=== PATIENT | male | born 1945 | race Caucasian/White ===

== ENCOUNTER 2023-06-22 06:15 | Emergency (ER) | payer MEDICARE, SELFPAY ==
[2023-06-22] VITALS (14 sets, daily range): BP systolic 153–183; BP diastolic 84–94; PULSE 74–89; RESP 16–24; TEMP 36.9; O2SAT 95–99; BMI 31.6
--- NOTE | 2023-06-22 06:39 | XR_ITS ---
The [address] [address] Patient Name: CHELIAT MCCOLLUM MRN: [id number] date: 1945 Sex: M Assigned Patient Location: ER Current Patient Location: ED.MAIN Accession/Order Number: [id number] Exam Date: 06/22/2023 06:54 Report Date: 06/22/2023 07:13 At the request of: DOMINICK ASHFORD Procedure: XR chest 1V EXAM: XR chest 1V HISTORY: Near syncope. COMPARISON: Chest radiograph dated 03/19/2021. TECHNIQUE: AP erect portable chest radiograph performed. FINDINGS: The cardiac silhouette is upper limits normal size and magnified. Stable mild atheromatous calcification at the aortic arch. There are low lung volumes with resultant prominence and crowding of the interstitial markings within both lung [place]. There is no consolidation or infiltrate. There is mild linear atelectasis within the right lower chest. There is no pleural effusion or pulmonary vascular congestion. There is no pneumothorax. The bony structures are osteopenic. There is no acute osseous abnormality. XR/XR chest 1V IMPRESSION: Unremarkable expiratory chest. Electronically authenticated by: RONALD JERONIMO Date: 06/22/2023 07:13
--- NOTE | 2023-06-22 06:39 | ECG_ITS ---
The [facility] Test Date: 2023-06-22 Pat Name: CHELITA MCCOLLUM Department: Room: - Gender: Male Administration Intern: : 1945 Requested By: Order Number: [id number] Reading MD: MANA DEJESUS Measurements Intervals [place] Rate: 85 P: 65 CA: 150 QRS: 7 QRSD: 76 T: 24 QT: 348 QTc: 390 Interpretive Statements 1100 Sinus rhythm 9110 normal ECG No previous ECG available for comparison Electronically Signed On 06-22-2023 17:58:16 EST by MANA DEJESUS
[2023-06-22 07:03] LABS: Basophils Absolute Auto 0.1 10^3/uL (0.0-0.1); Basophils Percent Auto 1.4 % (0.2-2.0); Eosinophils Absolute Auto 0.1 10^3/uL (0.0-0.7); Eosinophils Percent Auto 1.2 % (0.9-7.0); Hemoglobin 14.3 g/dL (14.0-18.0); Immature Granulocytes Abs Auto 0.02 10^3/uL (0.00-0.03); Immature Granulocytes Pct Auto 0.3 % (0.0-0.5); Lymphocytes Absolute Auto 1.9 10^3/uL (1.2-3.8); Lymphocytes Percent Auto 26.1 % (20.5-60.0); Mean Corpuscular HGB Conc 32.5 g/dL (29.9-35.2); Mean Corpuscular Hemoglobin 32.6 pg (25.9-34.0); Mean Corpuscular Volume 100.5 fL (80.0-94.0); Mean Platelet Volume 9.7 fL (9.5-13.5); Monocytes Absolute Auto 0.6 10^3/uL (0.3-0.8); Monocytes Percent Auto 8.6 % (1.7-12.0); Neutrophils Absolute Auto 4.6 10^3/uL (1.4-6.5); Neutrophils Percent Auto 62.4 % (43.0-75.0); Platelet Count 247 10^3/uL (150-450); Red Blood Count 4.38 10^6/uL (4.70-6.10); Red Cell Distribution Width 13.4 % (11.0-15.0); White Blood Count 7.3 10^3/uL (4.0-11.0)
[2023-06-22 07:17] LABS: D Dimer 0.22 mg/L FEU (<=0.59)
--- NOTE | 2023-06-22 07:20 | CT_ITS ---
The [address] [address] Patient Name: CHELITA MCCOLLUM MRN: [id number] date: 1945 Sex: M Assigned Patient Location: ER Current Patient Location: ER Accession/Order Number: [id number] Exam Date: 06/22/2023 07:43 Report Date: 06/22/2023 08:49 At the request of: RBOERTO GRUBBS Procedure: CT head/brain wo con EXAMINATION: CT head/brain wo con REASON FOR EXAM: pre-syncopal Presyncopal episode. COMPARISON: No comparisons. FINDINGS: Subarachnoid spaces are normal for age. No acute intracranial hemorrhage or cortical edema or focal mass. There is patchy decreased attenuation at periventricular white matter typical of chronic microvascular disease. No fluid in the sinuses or middle ear cavities or mastoids. No skull fracture CT/CT head/brain wo con IMPRESSION: 1. There is mild atrophy and chronic microvascular disease of the white matter. 2. No intracranial hemorrhage or other acute finding Electronically authenticated by: RONALD QUILES Date: 06/22/2023 08:49
[2023-06-22 07:23] LABS: Anion Gap 10.1; BUN Creatinine Ratio 15.2; Calcium 9.2 mg/dL (8.5-10.1); Chloride 104 mmol/L (98-107); Estimated GFR (African America >60 (>=60); Estimated GFR (Non-African Ame 56 (>=60); Glucose 127 mg/dL (74-106); Potassium 4.1 mmol/L (3.5-5.1); Sodium 141 mmol/L (136-145); Troponin I High Sensitivity 6.4 pg/mL (4.0-76.1)
[2023-06-22 08:14] LABS: Troponin I High Sensitivity 6.8 pg/mL (4.0-76.1)
--- NOTE | 2023-06-22 08:31 | ED.GENADUL1 ---
HPI - General Adult General Chief complaint: Dizziness Time Seen by Provider: 06/22/23 06:39 Source: patient Mode of arrival: ambulance Limitations: no limitations History of Present Illness HPI narrative: 78-year-old male presents because he states he felt like he is going to pass out. It started yesterday morning after he had been at the gym. He cannot give me any specific symptoms. He denies headache or palpitations. Denies dizziness and denies lightheadedness. No fever cough chest pain shortness of breath or vomiting. No complaints of abdominal pain or localized weakness. He has not passed out. Related Data Home Medications Medication Instructions Recorded Confirmed amlodipine 5 mg tablet 5 mg PO DAILY 06/22/23 06/22/23 metoprolol succinate 50 mg 50 mg PO DAILY 06/22/23 06/22/23 tablet,extended release 24 hr pantoprazole 40 mg tablet,delayed 40 mg PO DAILY 06/22/23 06/22/23 release pravastatin 40 mg tablet 40 mg PO DAILY 06/22/23 06/22/23 valsartan 160 mg tablet 160 mg PO DAILY 06/22/23 06/22/23 Allergies Allergy/AdvReac Type Severity Reaction Status Date / Time No Known Drug Allergies Allergy Verified 06/22/23 06:20 Review of Systems ROS Narrative A ten point review of systems is negative except as noted above. PFSH PFSH Social History Smoking status: Former smoker Exam Narrative Exam Narrative: Nurses note and vital signs reviewed and patient is not hypoxic. General: The patient appears well and in no apparent distress. Patient is resting comfortably on cart. Skin: Warm, dry, no pallor noted. There is no rash noted. Head: Normocephalic, atraumatic Eye: Normal conjunctiva, no drainage, EOMI. PERRL Ears, Nose, Mouth, and Throat: oral mucosa is moist. Nares patent. Cardiovascular: Regular Rate and Rhythm Respiratory: Patient is in no distress, no accessory muscle use, lungs are clear to auscultation, no wheezing, rales or rhonchi Back: non-tender GI: Soft and nontender Musculoskeletal: The patient has no evidence of calf tenderness, no pitting edema, symmetrical pulses noted bilaterally Neurological: A&O x4, normal speech; upper and lower extremity strength intact and symmetric Psychiatric: Cooperative Constitutional Vital Signs, click to edit/add: Last Vital Signs Temp 98.4 F 06/22/23 06:16 Pulse 77 06/22/23 08:45 Resp 19 06/22/23 08:45 BP 153/84 H 06/22/23 09:23 Pulse Ox 95 06/22/23 08:45 O2 Del Method Room Air 06/22/23 06:16 Course Vital Signs Vital signs: Vital Signs Temperature 98.4 F 06/22/23 06:16 Pulse Rate 85 06/22/23 06:16 Respiratory Rate 20 06/22/23 06:16 Blood Pressure 177/93 H 06/22/23 06:16 Pulse Oximetry 98 06/22/23 06:16 Oxygen Delivery Method Room Air 06/22/23 06:16 Temperature 98.4 F 06/22/23 06:16 Pulse Rate 77 06/22/23 08:45 Respiratory Rate 19 06/22/23 08:45 Blood Pressure 153/84 H 06/22/23 09:23 Pulse Oximetry 95 06/22/23 08:45 Oxygen Delivery Method Room Air 06/22/23 06:16 Medical Decision Making MDM Narrative Medical decision making narrative: His workup here including 2 sets of troponin is negative. CT brain and chest x-ray are negative. Blood work is negative. He was given some IV fluids and seem to feel improved and is discharged home. There is no indication for admission to the hospital. Treatment diagnosis and follow-up were discussed with the patient and his family. He will call his doctor in the morning for follow-up appointment. Differential Diagnosis Differential Diagnosis: Dehydration, dysrhythmia, anemia Lab Data Lab results reviewed: Yes I reviewed the patient's lab results Labs: Lab Results 06/22/23 06/22/23 Range/Units 06:58 07:53 WBC 7.3 (4.0-11.0) 10^3/uL RBC 4.38 L (4.70-6.10) 10^6/uL Hgb 14.3 (14.0-18.0) g/dL Hct 44.0 (42.0-54.0) % MCV 100.5 H (80.0-94.0) fL MCH 32.6 (25.9-34.0) pg MCHC 32.5 (29.9-35.2) g/dL RDW 13.4 (11.0-15.0) % Plt Count 247 (150-450) 10^3/uL MPV 9.7 (9.5-13.5) fL Neut % (Auto) 62.4 (43.0-75.0) % Lymph % (Auto) 26.1 (20.5-60.0) % [place] % (Auto) 8.6 (1.7-12.0) % Eos % (Auto) 1.2 (0.9-7.0) % Baso % (Auto) 1.4 (0.2-2.0) % Neut # (Auto) 4.6 (1.4-6.5) 10^3/uL Lymph # (Auto) 1.9 (1.2-3.8) 10^3/uL [place] # (Auto) 0.6 (0.3-0.8) 10^3/uL Eos # (Auto) 0.1 (0.0-0.7) 10^3/uL Baso # (Auto) 0.1 (0.0-0.1) 10^3/uL Abs Immat Gran (auto) 0.02 (0.00-0.03) 10^3/uL Imm/Tot Granulo (auto) 0.3 (0.0-0.5) % D-Dimer 0.22 (<=0.59) mg/L FEU Sodium 141 (136-145) mmol/L Potassium 4.1 (3.5-5.1) mmol/L Chloride 104 (98-107) mmol/L Carbon Dioxide 31.0 (21.0-32.0) mmol/L Anion Gap 10.1 BUN 19.0 H (7.0-18.0) mg/dL Creatinine 1.25 (0.70-1.30) mg/dL Est GFR ( Amer) >60 (>=60) Est GFR (Non-Af Amer) 56 L (>=60) BUN/Creatinine Ratio 15.2 Glucose 127 H (74-106) mg/dL Calcium 9.2 (8.5-10.1) mg/dL Troponin I High Sens 6.4 6.8 (4.0-76.1) pg/mL Imaging Data CT scan - head: Radiologist's impression: ITS Impressions Chest X-Ray 06/22/23 06:39 IMPRESSION: Unremarkable expiratory chest. Electronically authenticated by: RONALD JERONIMO Date: 06/22/2023 07:[address] 06/22/23 07:20 IMPRESSION: 1. There is mild atrophy and chronic microvascular disease of the white matter. 2. No intracranial hemorrhage or other acute finding Electronically authenticated by: RONALD QUILES Date: 06/22/2023 08:49 ECG Data Attestation: I personally reviewed and interpreted this ECG as follows: (EKG on my interpretation shows normal sinus rhythm without acute change and a rate of 85.) Discharge Plan Discharge Chief Complaint: Dizziness Clinical Impression: Dizziness Patient Disposition: Home, Self-Care Time of Disposition Decision: 09:31 Condition: Good Mode of Transportation: Private Vehicle Prescriptions / Home Meds: No Action amlodipine 5 mg tablet 5 mg PO DAILY metoprolol succinate 50 mg tablet extended release 24 hr 50 mg PO DAILY pantoprazole 40 mg tablet,delayed release (DR/EC) 40 mg PO DAILY pravastatin 40 mg tablet 40 mg PO DAILY valsartan 160 mg tablet 160 mg PO DAILY Instructions: Dizziness (ED) Additional Instructions: Call your family doctor in the morning for follow-up appointment Stand Alone Forms: Portal Instructions Referrals: Physician,Non-Staff, MD [Primary Care Provider] - 1 week
[2023-06-22] MEDS: 0.9 % SODIUM CHLORIDE 500 ML IV (08:49)
== END 2023-06-22 09:50 | disposition home or self-care (01) ==
PROVIDERS: Internal Medicine; Emergency Provider Emergency Medicine
DX: R42 Dizziness and giddiness (principal); Z87.891 Personal history of nicotine dependence; Z79.899 Other long term (current) drug therapy
CPT/HCPCS: 36415; 70450; 71045; 80048; 84484; 85025; 85378; 93005; 99285